=== PATIENT | male | born 1990 | race Caucasian/White ===

== ENCOUNTER 2016-07-05 11:14 | Emergency (ER) | payer OTHER ==
[~2016-07-05] VITALS: Ht 175.3 cm; Wt 53.5 kg
[2016-07-05 11:30] VITALS: BP 114/72
== END 2016-07-05 12:28 | disposition home or self-care (01) ==
LOC: ED 11:14
DX: B34.9 Viral infection, unspecified (principal)

== ENCOUNTER 2016-07-20 12:48 | Emergency (ER) | payer OTHER ==
[~2016-07-20] VITALS: Ht 175.3 cm; Wt 59.0 kg
[2016-07-20 13:32] VITALS: BP 124/71
== END 2016-07-20 15:00 | disposition home or self-care (01) ==
LOC: ED 12:48
DX: S97.82XA Crushing injury of left foot, initial encounter (principal); W20.8XXA Other cause of strike by thrown, projected or falling object, initial encounter; Y93.89 Activity, other specified; Y99.8 Other external cause status; Y92.89 Other specified places as the place of occurrence of the external cause

== ENCOUNTER 2017-01-17 08:19 | Emergency (ER) | payer OTHER ==
[~2017-01-17] VITALS: Ht 175.3 cm; Wt 54.4 kg
[2017-01-17 08:27] VITALS: BP 145/91
== END 2017-01-17 09:48 | disposition home or self-care (01) ==
LOC: ED 08:19
DX: S56.116A Strain of flexor muscle, fascia and tendon of left ring finger at forearm level, initial encounter (principal); Z88.6 Allergy status to analgesic agent; W01.0XXA Fall on same level from slipping, tripping and stumbling without subsequent striking against object, initial encounter; Y93.89 Activity, other specified; Y99.8 Other external cause status; Y92.89 Other specified places as the place of occurrence of the external cause
CPT/HCPCS: Q0092

== ENCOUNTER 2017-05-09 06:59 | Emergency (ER) | payer OTHER ==
[~2017-05-09] VITALS: Ht 175.3 cm; Wt 76.2 kg
[2017-05-09 07:07] VITALS: Ht 175.3 cm; Wt 76.2 kg
[2017-05-09 08:07] LABS: PLATELET COUNT 180 x10^3mcL (130-400); RED CELL DISTRIBUTION WIDTH 12.9 % (11.5-14.5)
[2017-05-09 08:12] LABS: BASOPHIL % 0 % (0-2)
[2017-05-09 08:26] LABS: CALCIUM 8.3 mg/dL (8.5-10.1); CARBON DIOXIDE 23.8 mmol/L (21-32); CHLORIDE SERUM 100 mmol/L (98-107); CREATININE SERUM 0.8 mg/dL (0.7-1.3); GFR1 > 60 mL/min; GLUCOSE SERUM 91 mg/dL (74-106); POTASSIUM SERUM 3.1 mmol/L (3.5-5.1); SODIUM SERUM 137 mmol/L (136-145)
[2017-05-09 08:31] LABS: ALBUMIN 4.2 g/dL (3.4-5.0); ALKALINE PHOSPHATASE 79 U/L (46-116); ALT/SGPT 22 U/L (16-63); AMYLASE 50 U/L (25-115); AST/SGOT 17 U/L (15-37); BILIRUBIN TOTAL 1.4 mg/dL (0.20-1.00); LIPASE 60 IU/L (73-393); TOTAL PROTEIN, SERUM 7.1 g/dL (6.4-8.2)
[2017-05-09 09:19] LABS: AMPHETAMINE QUAL UR NONE DETECTED (NEG <=1000)
[2017-05-09 10:33] VITALS: BP 116/66
== END 2017-05-09 10:33 | disposition home or self-care (01) ==
LOC: ED 06:59
PROVIDERS: Emergency Medicine
DX: R10.32 Left lower quadrant pain (principal); R10.31 Right lower quadrant pain; M41.9 Scoliosis, unspecified; E86.0 Dehydration; G43.909 Migraine, unspecified, not intractable, without status migrainosus; J02.9 Acute pharyngitis, unspecified; M79.1 Myalgia; R11.10 Vomiting, unspecified; R19.7 Diarrhea, unspecified; Z88.6 Allergy status to analgesic agent
CPT/HCPCS: 83880; J2405; J3010; J7030; Q9967